=== PATIENT | female | born 1950 | race Caucasian/White ===

== ENCOUNTER 2018-02-02 01:57 | Emergency (ER) | payer MEDICARE ==
[~2018-02-02] VITALS: Ht 165.1 cm; Wt 97.0 kg
[2018-02-02] MEDS ORDERED: ONDANSETRON 2MG/ML, 2ML IVPush ONE (02:30)
[2018-02-02] MEDS ORDERED: MORPHINE SULFATE 4 MG/ML, 1ML IVPush PRN (02:30)
[2018-02-02 02:36] LABS: BASOPHILS # (AUTO) 0.02 x10^3/uL (0-0.1); BASOPHILS % (AUTO) 0 % (0-1); EOSINOPHILS # (AUTO) 0.04 x10^3/uL (0-0.4); EOSINOPHILS % (AUTO) 0 % (1-7); LYMPHOCYTES # (AUTO) 1.21 x10^3/uL (1-3.4); LYMPHOCYTES % (AUTO) 9 % (22-44); MD NO; MEAN CORPUSCULAR HEMOGLOBIN 30.4 pg (27.0-34.8); MEAN CORPUSCULAR HGB CONC 33.8 g/dL (32.4-35.8); MEAN CORPUSCULAR VOLUME 89.9 fL (80-100); MONOCYTES # (AUTO) 0.65 x10^3/uL (0.2-0.8); MONOCYTES % (AUTO) 5 % (2-9); NEUTROPHILS # (AUTO) 11.18 x10^3/uL (1.8-6.8); NEUTROPHILS % (AUTO) 85 % (42-75); PLATELET COUNT 252 x10^3/uL (130-400); RED BLOOD COUNT 4.63 x10^6/uL (3.82-5.3); RED CELL DISTRIBUTION WIDTH 13.8 % (9.6-15.2)
[2018-02-02 02:44] LABS: ALANINE AMINOTRANSFERASE 25 U/L (12-78); ALBUMIN 3.8 g/dL (3.4-5.0); ANION GAP 12 mmol/L (5-15); CALCIUM 8.5 mg/dL (8.5-10.1); CHLORIDE 107 mmol/L (98-107); CREATININE 0.84 mg/dL (0.55-1.02)
[2018-02-02] MEDS ORDERED: MORPHINE SULFATE 4 MG/ML, 1ML ONE (02:44)
[2018-02-02] MEDS ORDERED: ONDANSETRON ODT 4 MG ONE (02:44)
[2018-02-02 02:46] LABS: ALKALINE PHOSPHATASE 121 U/L (45-117); BILIRUBIN,TOTAL 0.5 mg/dL (0.2-1.0); TOTAL PROTEIN 7.1 g/dL (6.4-8.2)
[2018-02-02 02:53] LABS: MICROSCOPIC AUTO
[2018-02-02] MEDS ORDERED: VENL75CA PO (02:53)
[2018-02-02] MEDS ORDERED: AMLO10TA6 PO (02:53)
[2018-02-02 02:54] LABS: CULTURE INDICATED? YES
[2018-02-02 03:44] VITALS: BP 150/76
== END 2018-02-02 04:30 | disposition home or self-care (01) ==
LOC: ED 04:20
DX: N13.2 Hydronephrosis with renal and ureteral calculous obstruction (principal); I10 Essential (primary) hypertension
CPT/HCPCS: 36415; 74176; 80053; 81001; 83690; 85025; 87086; 96374; 96375; 99285; J2405

== ENCOUNTER 2019-08-02 10:33 | Inpatient (IN) | payer MEDICARE ==
[~2019-08-02] VITALS: Ht 165.1 cm; Wt 75.7 kg
[~2019-08-02 10:33] MED LIST: AMLO10TA8 PO; VENL75CA PO
--- NOTE | 2019-08-02 10:54 | NUR ---
PT PRESENTS TO ED WITH C/O GENERALIZED ABD CRAMPING AND DIARRHEA STARTING YESTERDAY, PT NOTED BRIGHT RED BLOOD PER RECTUM X 2 THIS AM. PT HAS HX DIVERTICULOSIS. PT DENIES SORE THROAT/COUGH/SOB. EDMD VANBIBBER AT BEDSIDE FOR INITIAL ASSESSMENT. PT IS A&O, REPS EVEN AND UNLABORED. PT DENIES VOMITING, NO BLEEDING PER RECTUM AT THIS TIME. AT BEDSIDE. AWAITING ORDERS AT THIS TIME.
--- NOTE | 2019-08-02 11:06 | NUR ---
pt instructed to provide clean catch UA, supplies provided. pt up to bathroom with steady gait at this time.
[2019-08-02] MEDS ORDERED: ONDANSETRON 2MG/ML, 2ML ONE (11:27)
[2019-08-02] MEDS ORDERED: DICYCLOMINE 20 MG TABLET ONE (11:27)
[2019-08-02] MEDS ORDERED: ACETAMINOPHEN 500 MG TABLET ONE (11:27)
[2019-08-02] MEDS ORDERED: SODIUM CHLORIDE FLUSH 10ML SYR IVF ONE (11:30)
[2019-08-02] MEDS ORDERED: DICYCLOMINE 20 MG TABLET PO ONE (11:30)
[2019-08-02] MEDS ORDERED: ONDANSETRON 2MG/ML, 2ML IVPush ONE (11:30)
[2019-08-02] MEDS ORDERED: ACETAMINOPHEN 500 MG TABLET PO ONE (11:30)
[2019-08-02 11:33] LABS: MEAN CORPUSCULAR HEMOGLOBIN 31.6 pg (27.0-34.8); MEAN CORPUSCULAR HGB CONC 34.4 g/dL (32.4-35.8); MEAN CORPUSCULAR VOLUME 91.8 fL (80-100); MEAN PLATELET VOLUME 7.3 fL (7.4-10.4); PLATELET COUNT 233 x10^3/uL (130-400); RED BLOOD COUNT 5.24 x10^6/uL (3.82-5.3); RED CELL DISTRIBUTION WIDTH 13.2 % (9.6-15.2)
[2019-08-02 11:39] LABS: ALANINE AMINOTRANSFERASE 21 U/L (12-78); ALBUMIN 3.8 g/dL (3.4-5.0); ANION GAP 7 mmol/L (5-15); CALCIUM 8.9 mg/dL (8.5-10.1); CHLORIDE 111 mmol/L (98-107); CREATININE 0.86 mg/dL (0.55-1.02)
[2019-08-02 11:41] LABS: ALKALINE PHOSPHATASE 96 U/L (45-117); BILIRUBIN,TOTAL 0.9 mg/dL (0.2-1.0); TOTAL PROTEIN 7.1 g/dL (6.4-8.2)
--- NOTE | 2019-08-02 11:56 | NUR ---
PIV PLACED, PT MEDICATED PER EMAR, TOLERATED WELL. PT ATTACHED TO BP AND SPO2 MONITORS. CALL LIGHT IN REACH. AWAITING LAB RESULTS AND CT SCAN AT THIS TIME.
[2019-08-02 11:57] LABS: CULTURE INDICATED? YES; MICROSCOPIC INDICATED
[2019-08-02 12:28] LABS: BASOPHILS # (AUTO) 0.04 x10^3/uL (0-0.1); BASOPHILS % (AUTO) 0 % (0-1); EOSINOPHILS # (AUTO) 0.02 x10^3/uL (0-0.4); EOSINOPHILS % (AUTO) 0 % (1-7); LYMPHOCYTES # (AUTO) 1.25 x10^3/uL (1-3.4); LYMPHOCYTES % (AUTO) 8 % (22-44); MD SCAN; MONOCYTES # (AUTO) 0.71 x10^3/uL (0.2-0.8); MONOCYTES % (AUTO) 5 % (2-9); NEUTROPHILS # (AUTO) 13.32 x10^3/uL (1.8-6.8); NEUTROPHILS % (AUTO) 87 % (42-75)
--- NOTE | 2019-08-02 12:59 | NUR ---
PT RESTING ON SERGIO, A&O, RESPS EVEN AND UNLABORED, C/O 3/10 BILATERAL LOWER ABD PAIN AT THIS TIME. PT STATES "IT WAS A 12/02 YESTERDAY." CALL LIGHT IN REACH, AWAITING CT RESULTS AND DISPO.
--- NOTE | 2019-08-02 13:10 | NUR ---
dr montes spoke with dr aguayo
[2019-08-02] MEDS ORDERED: OMNIPAQUE 350 MG/ML, 100ML BOTTLE ONE (13:15)
[2019-08-02] MEDS ORDERED: VENL75TA2 PO (13:20)
[2019-08-02] MEDS ORDERED: ESTR30CR VG (13:21)
--- NOTE | 2019-08-02 13:22 | NUR ---
orders received for IV abx, awaiting blood cx x 2 prior to administration. pt updated with POC.
[2019-08-02] MEDS ORDERED: LEVOFLOXACIN/PMX 750MG/150ML 150 ML IV ONE (13:30)
[2019-08-02] MEDS ORDERED: METRONIDAZOLE PMX 500MG/100ML 100 ML IV ONE (13:30)
[2019-08-02] MEDS ORDERED: SODIUM CHLORIDE 0.9% 1,000 ML IV SCH (13:50)
--- NOTE | 2019-08-02 13:50 | NUR ---
hospitalist Lynne BROWNLEE at bedside for admit assessment. pt a&o, resps even and unlabored, conversing with MD at this time.
[2019-08-02] MEDS ORDERED: hydrALAzine 20 MG/ML, 1ML IVPush PRN (14:00)
[2019-08-02] MEDS ORDERED: TRAZODONE 50MG TABLET PO PRN (14:00)
[2019-08-02] MEDS ORDERED: ONDANSETRON ODT 4 MG PO PRN (14:00)
[2019-08-02] MEDS ORDERED: ENOXAPARIN 40 MG/0.4 ML SQ SCH (14:00)
[2019-08-02] MEDS ORDERED: ACETAMINOPHEN 325 MG TABLET PO PRN (14:00)
[2019-08-02] MEDS ORDERED: HYDROcodone/APAP 5/325 TABLET PO PRN (14:00)
[2019-08-02] MEDS ORDERED: LABETALOL 5MG/ML, 20ML IVPush PRN (14:00)
[2019-08-02] MEDS ORDERED: METRONIDAZOLE PMX 500MG/100ML 100 ML ONE (14:07)
[2019-08-02] MEDS ORDERED: NS + 40MEQ KCL 1,000 ML IV ONE (14:08)
[2019-08-02] MEDS: NS + 40MEQ KCL 1,000 ML IV SCH ×2 (14:43→22:08)
--- NOTE | 2019-08-02 15:06 | NUR ---
report given to LYNN Vides who is to assume care at this time.
--- NOTE | 2019-08-02 15:13 | NUR ---
report called to LYNN Manzanares. pt awaiting transport to oncology floor.
--- NOTE | 2019-08-02 15:14 | NUR ---
Report from kwasi coe complete transfer to inpatient bed at 151
[2019-08-02 16:09] VITALS: BP 160/81
[2019-08-02] MEDS: CIPROFLOXACIN/PMX 400MG/200ML 200 ML IV SCH (16:47)
[2019-08-02 18:31] VITALS: BP 159/66
[2019-08-02] MEDS: VENLAFAXINE 75 MG CAP ER PO SCH (20:55)
[2019-08-02] MEDS: morphine SULFATE 10 MG/ML, 1ML IVPush PRN ×2 (21:04→22:16)
[2019-08-03 00:22] VITALS: BP 109/54
[2019-08-03] MEDS: CIPROFLOXACIN/PMX 400MG/200ML 200 ML IV SCH ×2 (04:50→17:10)
[2019-08-03] MEDS: NS + 40MEQ KCL 1,000 ML IV SCH (04:51)
[2019-08-03 06:20] LABS: BASOPHILS # (AUTO) 0.03 x10^3/uL (0-0.1); BASOPHILS % (AUTO) 0 % (0-1); EOSINOPHILS % (AUTO) 1 % (1-7); LYMPHOCYTES # (AUTO) 1.35 x10^3/uL (1-3.4); LYMPHOCYTES % (AUTO) 11 % (22-44); MD NO; MEAN CORPUSCULAR HEMOGLOBIN 31.4 pg (27.0-34.8); MEAN CORPUSCULAR HGB CONC 33.5 g/dL (32.4-35.8); MEAN CORPUSCULAR VOLUME 93.7 fL (80-100); MEAN PLATELET VOLUME 7.5 fL (7.4-10.4); MONOCYTES # (AUTO) 0.92 x10^3/uL (0.2-0.8); MONOCYTES % (AUTO) 8 % (2-9); NEUTROPHILS # (AUTO) 9.68 x10^3/uL (1.8-6.8); NEUTROPHILS % (AUTO) 80 % (42-75); PLATELET COUNT 190 x10^3/uL (130-400); RED BLOOD COUNT 4.41 x10^6/uL (3.82-5.3); RED CELL DISTRIBUTION WIDTH 13.8 % (9.6-15.2)
[2019-08-03 06:21] LABS: ALBUMIN 2.9 g/dL (3.4-5.0); ANION GAP 7 mmol/L (5-15); CALCIUM 8.2 mg/dL (8.5-10.1); CHLORIDE 118 mmol/L (98-107)
[2019-08-03 06:27] LABS: ALANINE AMINOTRANSFERASE 17 U/L (12-78); ALKALINE PHOSPHATASE 72 U/L (45-117); BILIRUBIN,TOTAL 0.9 mg/dL (0.2-1.0); CREATININE 0.76 mg/dL (0.55-1.02); TOTAL PROTEIN 5.8 g/dL (6.4-8.2)
[2019-08-03 07:10] VITALS: BP 121/62
[2019-08-03] MEDS: VENLAFAXINE 75 MG CAP ER PO SCH (09:00)
[2019-08-03] MEDS: PANTOPRAZOLE 40MG TABLET PO SCH (09:00)
[2019-08-03] MEDS: METRONIDAZOLE PMX 500MG/100ML 100 ML IV SCH ×2 (15:00→23:13)
[2019-08-03 15:33] VITALS: BP 119/68
[2019-08-03 19:08] VITALS: BP 134/74
[2019-08-03] MEDS ORDERED: METRONIDAZOLE PMX 500MG/100ML 100 ML IV SCH (22:30)
[2019-08-04 00:30] VITALS: BP 101/58
[2019-08-04] MEDS: CIPROFLOXACIN/PMX 400MG/200ML 200 ML IV SCH ×2 (04:34→17:28)
[2019-08-04 06:23] LABS: ANION GAP 7 mmol/L (5-15); CALCIUM 8.5 mg/dL (8.5-10.1); CHLORIDE 112 mmol/L (98-107)
[2019-08-04 06:24] LABS: CREATININE 0.59 mg/dL (0.55-1.02)
[2019-08-04 07:04] VITALS: BP 120/72
[2019-08-04] MEDS: METRONIDAZOLE PMX 500MG/100ML 100 ML IV SCH ×3 (08:00→23:04)
[2019-08-04] MEDS ORDERED: POTASSIUM CHLORIDE 20 MEQ TAB.ER.PRT PO ONE (08:00)
[2019-08-04] MEDS: VENLAFAXINE 75 MG CAP ER PO SCH (08:07)
[2019-08-04] MEDS: PANTOPRAZOLE 40MG TABLET PO SCH (08:07)
[2019-08-04 14:53] VITALS: BP 132/74
[2019-08-04 19:35] VITALS: BP 143/77
[2019-08-05 01:11] VITALS: BP 134/71
[2019-08-05] MEDS: CIPROFLOXACIN/PMX 400MG/200ML 200 ML IV SCH (04:44)
[2019-08-05 04:46] LABS: CALCIUM 8.6 mg/dL (8.5-10.1); CHLORIDE 110 mmol/L (98-107)
[2019-08-05 04:48] LABS: BASOPHILS # (AUTO) 0.04 x10^3/uL (0-0.1); BASOPHILS % (AUTO) 1 % (0-1); EOSINOPHILS # (AUTO) 0.19 x10^3/uL (0-0.4); EOSINOPHILS % (AUTO) 3 % (1-7); LYMPHOCYTES # (AUTO) 1.63 x10^3/uL (1-3.4); LYMPHOCYTES % (AUTO) 23 % (22-44); MD NO; MEAN CORPUSCULAR HEMOGLOBIN 31.2 pg (27.0-34.8); MEAN CORPUSCULAR HGB CONC 33.9 g/dL (32.4-35.8); MEAN CORPUSCULAR VOLUME 92.2 fL (80-100); MEAN PLATELET VOLUME 7.6 fL (7.4-10.4); MONOCYTES # (AUTO) 0.49 x10^3/uL (0.2-0.8); MONOCYTES % (AUTO) 7 % (2-9); NEUTROPHILS # (AUTO) 4.83 x10^3/uL (1.8-6.8); NEUTROPHILS % (AUTO) 67 % (42-75); PLATELET COUNT 175 x10^3/uL (130-400); RED BLOOD COUNT 4.17 x10^6/uL (3.82-5.3); RED CELL DISTRIBUTION WIDTH 13.1 % (9.6-15.2)
[2019-08-05 04:50] LABS: ANION GAP 6 mmol/L (5-15); CREATININE 0.69 mg/dL (0.55-1.02)
[2019-08-05] MEDS: METRONIDAZOLE PMX 500MG/100ML 100 ML IV SCH (06:34)
[2019-08-05] MEDS: PANTOPRAZOLE 40MG TABLET PO SCH (07:32)
[2019-08-05] MEDS: VENLAFAXINE 75 MG CAP ER PO SCH (07:32)
[2019-08-05 07:37] VITALS: BP 147/83
[2019-08-05] MEDS ORDERED: CIPR500T3 PO (08:13)
[2019-08-05] MEDS ORDERED: METR500T PO (08:13)
== END 2019-08-05 10:10 | disposition home or self-care (01) | DRG 394 ==
LOC: ED 11:10 → EDIP 13:30 → 3N 15:22
PROVIDERS: ADMIT Internal Medicine; ATTEND Internal Medicine
DX: K55.9 Vascular disorder of intestine, unspecified (principal); N39.0 Urinary tract infection, site not specified; K62.5 Hemorrhage of anus and rectum; E87.6 Hypokalemia; Z85.3 Personal history of malignant neoplasm of breast; Z87.442 Personal history of urinary calculi; B96.20 Unspecified Escherichia coli [E. coli] as the cause of diseases classified elsewhere; D75.1 Secondary polycythemia; K57.90 Diverticulosis of intestine, part unspecified, without perforation or abscess without bleeding
CPT/HCPCS: 36415; 74177; 80048; 80053; 81001; 83605; 83615; 83690; 83735; 84100; 85025; 86140; 86850; 86900; 87040; 87077; 87086; 87186; 96374; 96375; G0378; J0744; J2405; Q9967; J2270; J3480